=== PATIENT | male | born 1980 | race African-American/Black ===

== ENCOUNTER 2024-10-31 16:19 | Emergency (ER) | payer MEDICAID ==
[~2024-10-31] VITALS: Ht 172.7 cm; Wt 81.6 kg
[2024-10-31 16:22] VITALS: O2SAT 98
[2024-10-31 16:26] VITALS: BP 131/81; PULSE 75; RESP 16; TEMP 36.9; O2SAT 99
[2024-10-31] MEDS ORDERED: AMOX1TAB16 PO (20:39)
[2024-10-31] MEDS ORDERED: NAPR-681 PO (20:39)
[2024-10-31] MEDS: BACITRACIN ZINC OINT UDPKT TOP ONE (21:00)
[2024-10-31] MEDS: TETANUS, DIPHTHERIA, PERTUSSIS VAC/PF 0.5ML (>10YR OLD) IM ONE (21:00)
== END 2024-10-31 21:10 | disposition home or self-care (01) ==
LOC: ER 16:19
DX: S61.451A Open bite of right hand, initial encounter (principal); W54.0XXA Bitten by dog, initial encounter; Y93.89 Activity, other specified; Y92.89 Other specified places as the place of occurrence of the external cause; Y99.8 Other external cause status
CPT/HCPCS: 73120; 90471; 90715; 99283